=== PATIENT | male | born 1935 | race Caucasian/White ===

== ENCOUNTER 2022-04-12 17:30 | Observation (INO) | payer OTHER ==
[2022-04-12 18:27] LABS: Absolute Lymphocytes (CBC) 0.9 K/uL (0.7-4.9); Hematocrit 46.5 % (39.6-49.0); Lymphocytes % 5.8 % (15.3-44.8); MPV 7.1 fL (7.6-11.3)
[2022-04-12] MEDS ORDERED: NA CHLORIDE 0.9% 0 ML ONE (18:35)
[2022-04-12 18:44] LABS: Potassium 3.8 mmol/L (3.5-5.1)
[2022-04-12] MEDS ORDERED: METOPROLOL TARTRATE 5 MG/5 ML INJ IV ONE ×3 (19:21→21:10)
--- NOTE | 2022-04-12 19:57 | RAD REPORT ---
EXAM DESCRIPTION: CT - Head C Spine Shai Newton - 04/12/2022 7:31 pm CLINICAL HISTORY: Head and neck injury with chest and abdominal pain status post fall. Head and neck pain . TECHNIQUE: Computed axial tomography of the head and cervical spine was obtained Computed axial tomography of the chest, abdomen and pelvis was obtained. 100 cc Isovue-300 was given intravenously coronal and sagittal reconstruction was performed. All CT scans are performed using dose optimization technique as appropriate and may include automated exposure control or mA/KV adjustment according to patient size. COMPARISON: none FINDINGS: An intracranial bleed is not seen. The ventricles are normal in caliber. 5 millimeter partially calcified density within the roof of third ventricle may represent a colloid c yst. An extra-axial fluid collection is not noted. Fluid within the sinuses is not seen A cervical fracture is not seen. No dislocation is seen. A mediastinal hematoma is not noted. A pleural effusion is not present. A lung contusion is not seen. A comminuted left humeral neck fracture with marked displacement of fracture fragments The liver, spleen, pancreas, adrenals, kidneys and bladder do not demonstrate a traumatic injury Mild anterior subluxation of L5 on S1. Spondylolysis L5 3.5 centimeter infrarenal abdominal aortic aneurysm containing small to moderate amount of thrombus. 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 Mild enlarged prostate. Hepatic and splenic granulomata 2 centimeter mass right vallecula. IMPRESSION: No acute intracranial abnormality is seen A cervical fracture is not visualized. If the patient continues have symptoms to suggest intracranial /spinal cord pathology then MRI would be recommended. Comminuted left humeral neck fracture with marked displacement of fracture fragments 3.5 centimeter infrarenal abdominal aortic aneurysm. 2 centimeter mass right vallecula. Direct visualization recommended
--- NOTE | 2022-04-12 19:57 | RAD REPORT ---
EXAM DESCRIPTION: RAD - Shoulder Left 2 View - 04/12/2022 5:59 pm CLINICAL HISTORY: Left shoulder pain status post fall FINDINGS: Comminuted humeral neck fracture. Marked displacement fracture fragments No dislocation
[2022-04-12] MEDS ORDERED: MORPHINE 2 MG/ML SYR ONE ×2 (20:44→23:43)
[2022-04-12] MEDS ORDERED: ONDANSETRON 4 MG/2 ML VIAL ONE (20:44)
--- NOTE | 2022-04-12 20:49 | RAD REPORT ---
EXAM DESCRIPTION: Doris Single View04/12/2022 8:16 pm CLINICAL HISTORY: Chest pain COMPARISON: none FINDINGS: The lungs appear clear of acute infiltrate. The heart is mildly enlarged Left humeral fracture again demonstrated
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
[2022-04-12] MEDS ORDERED: NICOTINE 21 MG/PAT TD ONE (21:09)
[2022-04-12] MEDS ORDERED: METOPROLOL TAR 25 MG TAB ONE (21:09)
[2022-04-12] MEDS ORDERED: TETANUS & DIPHTHERIA TOX,ADULT 0.5 ML VIAL ONE (21:10)
[2022-04-12] MEDS ORDERED: NA CHLORIDE 0.9% 1,000 ML ONE (21:10)
[2022-04-12] MEDS ORDERED: FAMOTIDINE 20 MG/2 ML VIAL IV ONE (21:10)
[2022-04-12 21:15] LABS: Magnesium 2.1 mg/dL (1.8-2.4)
[2022-04-12 21:31] LABS: Protime INR 1.08
[2022-04-12] MEDS ORDERED: ENOXAPARIN 40 MG/0.4 ML SQ ONE (21:37)
[2022-04-12] MEDS ORDERED: ASPIRIN EC 81 MG TAB PO ONE (21:37)
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
[2022-04-12] MEDS ORDERED: HYDRALAZINE HCL 20 MG/ML VIAL ONE (23:43)
[2022-04-13] MEDS ORDERED: HYDRALAZINE HCL 20 MG/ML VIAL IV PRN (01:02)
[2022-04-13] MEDS ORDERED: HYDROCODONE/APAP 7.5/325 MG TAB PO PRN (01:02)
[2022-04-13 01:34] VITALS: BMI 22.1
[2022-04-13 01:46] LABS: Urine Appearance Clear (Clear); Urine Bilirubin Negative (Negative); Urine Blood Negative (Negative); Urine Color Yellow (Yellow); Urine Glucose Negative (Negative); Urine Protein Negative (Negative); Urine Specific Gravity 1.015 (1.005-1.030); Urine Urobilinogen 0.2 mg/dL (0.2-1.0)
[2022-04-13 01:52] LABS: Urine Microscopic Reflex NO UMIC
[2022-04-13 02:00] LABS: Barbiturates NEGATIVE (NEGATIVE); Benzodiazepines NEGATIVE (NEGATIVE); Cocaine NEGATIVE (NEGATIVE); METHAMPHETAM NEGATIVE (NEGATIVE); Methadone NEGATIVE (NEGATIVE); Opiates POSITIVE (NEGATIVE); Phencyclidine NEGATIVE (NEGATIVE); THC Cannibis POSITIVE (NEGATIVE)
[2022-04-13] MEDS ORDERED: ONDANSETRON 4 MG/2 ML VIAL IV PRN (02:00)
[2022-04-13] MEDS ORDERED: PROMETHAZINE INJ 25 MG/ML AMP IV PRN (04:01)
[2022-04-13 07:04] LABS: Albumin 3.3 g/dL (3.4-5.0); Bilirubin Total 1.3 mg/dL (0.2-1.0); Potassium 3.5 mmol/L (3.5-5.1); Protein, Total 6.6 g/dL (6.4-8.2)
[2022-04-13 07:05] LABS: Magnesium 1.9 mg/dL (1.8-2.4)
[2022-04-13 07:19] LABS: Absolute Lymphocytes (CBC) 1.1 K/uL (0.7-4.9); Hematocrit 42.9 % (39.6-49.0); Lymphocytes % 8.4 % (15.3-44.8); MCV 91.6 fL (80-100); MPV 7.3 fL (7.6-11.3); RBC Red Blood Cell Count 4.69 M/uL (4.33-5.43)
[2022-04-13 07:57] LABS: Blood Morphology Comment NOT SEEN (NOT SEEN); Platelet Estimate ADEQ; Platelets, Giant 1+; White Blood Cell Scan OK (OK)
[2022-04-13] MEDS ORDERED: PNEUMOCOCCAL VACCINE 0.5 ML IMVAC ONE (09:00)
[2022-04-13] MEDS: ENOXAPARIN 40 MG/0.4 ML SQ SCH (10:13)
[2022-04-13] MEDS: METOPROLOL TAR 50 MG TAB PO SCH ×2 (10:13→20:17)
[2022-04-13] MEDS: ASPIRIN EC 81 MG TAB PO SCH (10:13)
[2022-04-13] MEDS: MORPHINE 2 MG/ML SYR IV PRN ×2 (10:20→15:41)
--- NOTE | 2022-04-13 14:14 | P.PN ---
Subjective Date of Service: 04/13/22 Chief Complaint: New onset A. fib Subjective: No new changes Physical Examination - Vital Signs Temperature: 97.7 F Blood Pressure: 118/82 Pulse: 84 Respirations: 18 Pulse Ox (%): 99 - Physical Exam General: Alert, Oriented x3 HEENT: Atraumatic, Normocephalic Neck: Supple Respiratory: Normal air movement Cardiovascular: Regular rate/rhythm, Normal S1 S2 Gastrointestinal: Soft and benign Musculoskeletal: Tenderness (left arm.) Neurological: Normal speech, Normal strength at 5/5 x4 extr - Studies Laboratory Data (last 24 hrs) 04/12/22 21:18: PT 11.9, INR 1.08 04/12/22 19:39: Magnesium Cancelled 04/12/22 18:05: WBC 15.3 H, Hgb 15.2, Hct 46.5, Plt Count 318 04/12/22 18:05: Sodium 134 L, Potassium 3.8, BUN 14, Creatinine 1.28, Glucose 167 H, Magnesium 2.1 Assessment And Plan - Plan New onset A. fib: Much improved rate control. Cardiology consulted, echocardiogram ordered. Pending recommendations. Comminuted left humeral neck fracture: Sling applied, as needed pain medications on board, orthopedic surgeon consulted, outpatient follow-up planned. Incidental CT findings including 2 cm right vallecular mass, 3.5 cm infrarenal aortic aneurysm, 5 mm cysts roof of third ventriclesuspected colloid cyst: These were all discussed with patient at length recommended follow-up with ENT, neurology, cardiology/vascular/PCP. Patient verbalized understanding copy of CT report provided to patient. Prophylaxis: Lovenox for DVT prophylaxis. Discharge disposition: pending cardiology recommendations
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
[2022-04-14 04:32] LABS: Absolute Lymphocytes (CBC) 1.5 K/uL (0.7-4.9); Hematocrit 36.1 % (39.6-49.0); Lymphocytes % 17.4 % (15.3-44.8); MCV 92.3 fL (80-100); MPV 7.1 fL (7.6-11.3); RBC Red Blood Cell Count 3.91 M/uL (4.33-5.43)
[2022-04-14 04:48] LABS: Albumin 2.7 g/dL (3.4-5.0); Bilirubin Total 1.4 mg/dL (0.2-1.0); Magnesium 1.9 mg/dL (1.8-2.4); Potassium 4.3 mmol/L (3.5-5.1); Protein, Total 5.9 g/dL (6.4-8.2)
[2022-04-14] MEDS: ENOXAPARIN 40 MG/0.4 ML SQ SCH (08:13)
[2022-04-14] MEDS: METOPROLOL TAR 50 MG TAB PO SCH (08:13)
[2022-04-14] MEDS: ASPIRIN EC 81 MG TAB PO SCH (08:15)
[2022-04-14] MEDS ORDERED: ASPIRIN EC 81 MG TAB PO SCH (09:00)
--- NOTE | 2022-04-14 10:49 | P.PN ---
Subjective Date of Service: 04/14/22 Chief Complaint: New onset A. fib Subjective: Improving (No new complaints patient has atrial fibrillation little agitated. Fracture of the left humerus) Review of Systems General: Weakness Respiratory: Shortness of Breath Physical Examination - Vital Signs Temperature: 98.3 F Blood Pressure: 121/76 Pulse: 101 Respirations: 14 Pulse Ox (%): 94 - Physical Exam General: Alert, In no apparent distress, Mild distress Respiratory: Clear to auscultation bilaterally Cardiovascular: No edema, Irregular heart rate/rhythm Assessment And Plan - Current Problems (Diagnosis) (1) Atrial fibrillation Current Visit: Yes Status: Acute Plan: Start patient on sotalol he is not a candidate for anticoagulation and aspirin due to recent commuted fracture vital signs are satisfactory Qualifiers: Atrial fibrillation type: unspecified chronic Qualified Code(s): I48.20 - Chronic atrial fibrillation, unspecified; I48.2 - Chronic atrial fibrillation (2) Fracture of humerus, left, closed Current Visit: Yes Status: Acute Plan: The charge nurse Esmer called Dr. Chaudhry and he stated that patient is stable to go home with a sling to follow-up in his office CT report as stated below will need to follow-up for the aneurysm is also a mass in the right vallecula No acute intracranial abnormality is seen A cervical fracture is not visualized. If the patient continues have symptoms to suggest intracranial/spinal cord pathology then MRI would be recommended. Comminuted left humeral neck fracture with marked displacement of fracture fragments 3.5 centimeter infrarenal abdominal aortic aneurysm. 2 centimeter mass right vallecula. Direct visualization recommended Qualifiers: Encounter type: subsequent encounter Fracture morphology: comminuted
--- NOTE | 2022-04-14 11:04 | P.DS ---
Admission Date: 04/12/22 Discharge Date: 04/14/22 Disposition: ROUTINE DISCHARGE Discharge Condition: FAIR Reason for Admission: New onset A. fib Consultations: Dr. Christie and Dr. Chaudhry - Chavo (1) Atrial fibrillation Current Visit: Yes Status: Acute Qualifiers: Atrial fibrillation type: unspecified chronic Qualified Code(s): I48.20 - Chronic atrial fibrillation, unspecified; I48.2 - Chronic atrial fibrillation (2) Fracture of humerus, left, closed Current Visit: Yes Status: Acute Qualifiers: Encounter type: subsequent encounter Fracture morphology: comminuted Brief History of Present Illness: Patient is 86 years of age admitted with a recent fall atrial fibrillation and commuted fracture of the left humerus Hospital Course: His condition remains stable atrial fibrillation controlled he is to take sotalol and aspirin in addition patient has a 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 need to follow-up with neurology so 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 be addressed by cardiology as outpatient vital signs are all stable Vital Signs/Physical Exam: Temp Pulse Resp BP Pulse Ox 98.3 F 101 H 14 121/76 94 04/14/22 10:56 04/14/22 10:56 04/14/22 10:56 04/14/22 10:56 04/14/22 10:56 Laboratory Data at Discharge: WBC 8.4 K/uL (4.3-10.9) D 04/14/22 04:15 Hgb 12.1 g/dL (13.6-17.9) L 04/14/22 04:15 Hct 36.1 % (39.6-49.0) L D 04/14/22 04:15 Plt Count 248 K/uL (152-406) 04/14/22 04:15 PT 11.9 SECONDS (9.5-12.5) 04/12/22 21:18 INR 1.08 04/12/22 21:18 Sodium 139 mmol/L (136-145) 04/14/22 04:15 Potassium 4.3 mmol/L (3.5-5.1) 04/14/22 04:15 BUN 15 mg/dL (7-18) 04/14/22 04:15 Creatinine 0.98 mg/dL (0.55-1.3) 04/14/22 04:15 Glucose 117 mg/dL (74-106) H 04/14/22 04:15 Magnesium 1.9 mg/dL (1.8-2.4) 04/14/22 04:15 Total Bilirubin 1.4 mg/dL (0.2-1.0) H 04/14/22 04:15 AST 10 U/L (15-37) L 04/14/22 04:15 ALT 13 U/L (12-78) 04/14/22 04:15 Alkaline Phosphatase 54 U/L (45-117) 04/14/22 04:15 Triglycerides 41 mg/dL (<150) 04/13/22 06:37 Cholesterol 110 mg/dL (<200) 04/13/22 06:37 HDL Cholesterol 68 mg/dL (40-60) H 04/13/22 06:37 Cholesterol/HDL Ratio 1.62 04/13/22 06:37 Home Medications: RX: Sotalol HCl [Betapace*] 40 mg PO BID 6AM 6PM #60 tab 04/14/22 New Medications: RX: Sotalol HCl [Betapace*] 40 mg PO BID 6AM 6PM #60 tab Physician Discharge Instructions: Patient to follow-up with cardiology neurology and a primary care doctor I have faxed in a prescription for sotalol and to take baby aspirin Diet: Regular Activity: Ad adams Followup: Efren Karimi MD [ACTIVE - CAN ADMIT] - NONE,NONE [Primary Care Provider] - Jose Lau MD [ACTIVE - CAN ADMIT] - Calvin Chaudhry MD [ACTIVE - CAN ADMIT] -
[2022-04-14 11:25] VITALS: O2SAT 94
[2022-04-14 12:52] VITALS: BP 150/96; TEMP 98.6
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
[2022-04-14] MEDS ORDERED: SOTALOL HCL 80 MG TAB PO SCH (18:00)
--- NOTE | 2022-04-16 07:18 | ECHO ---
HEIGHT: 5 ft 10 in WEIGHT: 154 lb 6 oz DATE OF STUDY: 04/13/[address]: Ian Aviles NP 2-DIMENSIONAL: YES M.MODE: YES DOPPLER: YES COLOR FLOW: YES TDS: NO PORTABLE: YES DEFINITY: NO BUBBLE STUDY: NO DIAGNOSIS: NEW ATRIAL FIBRILLATION CARDIAC HISTORY: CATHERIZATION: SURGERY: PROSTHETIC VALVE: PACEMAKER: MEASUREMENTS (cm) DIASTOLIC (NORMALS) SYSTOLIC (NORMALS) IVSd 1.2 (0.6-1.2) LA Diam 4.4 (1.9-4.0) LVEF 40% LVIDd 4.4 (3.5-5.7) LVIDs 3.5 (2.0-3.5) %FS 19% LVPWd 1.3 (0.6-1.2) Ao Diam 2.2 (2.0-3.7) 2 DIMENSIONAL ASSESSMENT: RIGHT ATRIUM: ENLARGED LEFT ATRIUM: ENLARGED RIGHT VENTRICLE: NORMAL LEFT VENTRICLE: MILD LEFT VENTRICULAR HYPERTROPHY TRICUSPID VALVE: MITRAL VALVE: PULMONIC VALVE: NORMAL AORTIC VALVE: NORMAL PERICARDIAL EFFUSION: NONE AORTIC ROOT: NORMAL LEFT VENTRICULAR WALL MOTION: MILD GLOBAL HYPOKINESIS. DOPPLER/COLOR FLOW: MILD MITRAL AND TRICUSPID REGURGITATION. COMMENTS: MILDLY DEPRESSED LEFT VENTRICULAR EJECTION FRACTION 40-45%. MILD GLOBAL HYPOKINESIS. MILD MITRAL AND TRICUSPID REGURGITATION. BI-ATRIAL ENLARGEMENT. TECHNOLOGIST: Melquiades PELLETIER
--- NOTE | 2022-04-16 14:00 | EKG ---
Test Date: 2022-04-12 Test Time: 19:00:04 Hand Screen Printer: ALBERTO MEASUREMENT RESULTS: Intervals: Rate: 110 PA: QRSD: 78 QT: 330 QTc: 446 [place]: P: PA: QRS: 87 T: 86 INTERPRETIVE STATEMENTS: Atrial fibrillation with rapid ventricular response with premature ventricular or aberrantly conducted complexes Abnormal ECG Compared to ECG 02/21/1995 12:11:00 Ventricular premature complex(es) now present Sinus rhythm no longer present Electronically Signed On 04-16-22 13:51:57 CDT by Jose Lau
== END 2022-04-14 13:36 | disposition home or self-care (01) ==
LOC: ER 17:30 → ERHOLD 22:10 → 2ND 04-13 00:14
PROVIDERS: ADMIT Internal Medicine Nephrology; ATTEND Internal Medicine Sleep Medicine
DX: I48.20 Chronic atrial fibrillation, unspecified (principal); S42.292A Other displaced fracture of upper end of left humerus, initial encounter for closed fracture; V17.0XXA Pedal cycle driver injured in collision with fixed or stationary object in nontraffic accident, initial encounter; Y92.410 Unspecified street and highway as the place of occurrence of the external cause; I71.4 Abdominal aortic aneurysm, without rupture; R22.1 Localized swelling, mass and lump, neck; F12.90 Cannabis use, unspecified, uncomplicated; Z87.891 Personal history of nicotine dependence; Z88.0 Allergy status to penicillin; Z20.822 Contact with and (suspected) exposure to COVID-19
CPT/HCPCS: 36415; 70450; 71045; 71260; 72125; 74177; 80048; 80053; 80061; 80307; 81003; 83735; 83880; 84443; 84484; 85025; 85610; 86850; 86900; 86901; 90471; 90714; 93005; 93306; 96361; 96372; 96374; 96375; 99285; G0378; J0360; J1650; J2270; J2405; J2550; J3490; J7030; Q9967; U0003